=== PATIENT | male | born 1970 | race Native Hawaiian/Other Pacific Islander ===

== ENCOUNTER 2016-08-01 22:31 | Emergency (ER) | payer OTHER ==
[~2016-08-01] VITALS: Ht 190.5 cm; Wt 99.8 kg
[~2016-08-01 22:31] MED LIST: ACET7.5T70 PO; ALBUAER5 INH; ALBUTEROL0.083 % IN; ALPR0.5T24 PO; AMLO2.5T PO; CETIRIZINE10 MG PO; HYDR-3182 PO; LOPRESSOR100 MG PO; LORA1TAB17 PO; NEXIUM40 M1 PO; POLY3350 PO; PRAMIPEXOLE0.25 MG PO; RAMI10CA PO; SIMV20TA2 PO; TRICOR145 MG PO; XANAX XR0.5 MG PO
[2016-08-01 23:16] LABS: PLATELET COUNT 238 K/uL (142-355)
[2016-08-01 23:25] LABS: POTASSIUM 3.8 mmol/L (3.6-5.2); SODIUM 135 mmol/L (136-145)
[2016-08-02 00:42] VITALS: BP 176/95; TEMP 97.7
== END 2016-08-02 00:47 | disposition home or self-care (01) ==
LOC: ED 22:31
PROVIDERS: Family Medicine
DX: R10.84 Generalized abdominal pain (principal); K85.80 Other acute pancreatitis without necrosis or infection; K21.9 Gastro-esophageal reflux disease without esophagitis; E86.0 Dehydration; K29.00 Acute gastritis without bleeding
CPT/HCPCS: 80053; 81000; 82150; 83690; 85027; 96361; 96374; 99284; J2550

== ENCOUNTER 2016-08-09 22:49 | Emergency (ER) | payer OTHER ==
[~2016-08-09] VITALS: Ht 190.5 cm; Wt 99.8 kg
[2016-08-10 00:01] VITALS: BP 128/76; TEMP 98.4
== END 2016-08-10 00:04 | disposition home or self-care (01) ==
LOC: ED 22:49
DX: J44.1 Chronic obstructive pulmonary disease with (acute) exacerbation (principal); J98.01 Acute bronchospasm
CPT/HCPCS: 96372; 99283; J2930

== ENCOUNTER 2016-09-28 12:11 | Observation (INO) | payer OTHER ==
[~2016-09-28] VITALS: Ht 190.5 cm; Wt 101.4 kg
[2016-09-28 16:46] LABS: PLATELET COUNT 178 K/uL (142-355)
[2016-09-28 17:44] LABS: POTASSIUM 3.8 mmol/L (3.6-5.2); SODIUM 137 mmol/L (136-145)
[2016-09-28 18:19] VITALS: BP 118/76; TEMP 97.8; Ht 190.5 cm; Wt 101.4 kg
[2016-09-28] MEDS ORDERED: CLONAZEP ODT2 MG PO (19:25)
[2016-09-28] MEDS ORDERED: ESCI10TA PO (19:26)
[2016-09-28 20:00] VITALS: BP 147/83; TEMP 98.3
[2016-09-29] VITALS: BP 129/71; TEMP 98.1
[2016-09-29 04:00] VITALS: BP 112/62; BP 141/87; TEMP 98; TEMP 98.3
[2016-09-29 08:00] VITALS: BP 157/85; TEMP 98.1
[2016-09-29 11:49] LABS: POTASSIUM 3.7 mmol/L (3.6-5.2); SODIUM 137 mmol/L (136-145)
[2016-09-29 11:58] LABS: PLATELET COUNT 162 K/uL (142-355)
[2016-09-29 12:00] VITALS: BP 141/82; TEMP 97.9
[2016-09-29 16:00] VITALS: BP 150/76; TEMP 98.3
[2016-09-29 20:00] VITALS: BP 145/70; TEMP 97.9
[2016-09-30 00:13] VITALS: BP 136/70; TEMP 97.9
[2016-09-30 04:00] VITALS: BP 147/76; TEMP 97.6
[2016-09-30 04:44] LABS: PLATELET COUNT 181 K/uL (142-355)
[2016-09-30 04:59] LABS: SODIUM 137 mmol/L (136-145)
[2016-09-30 07:56] VITALS: BP 146/78; TEMP 97.6
[2016-09-30 12:00] VITALS: BP 155/76; TEMP 98.3
[2016-09-30 16:00] VITALS: BP 150/76; TEMP 98.3
== END 2016-09-30 20:40 | disposition home or self-care (01) ==
LOC: MED/SURG 12:11
PROVIDERS: ADMIT Family Medicine
DX: J18.8 Other pneumonia, unspecified organism (principal); R73.9 Hyperglycemia, unspecified
CPT/HCPCS: 36415; 80053; 83036; 83735; 84100; 85027; 87040; 87070; 87205; 93005; 94640; 94664; 94760; 96365; 96366; 96367; 96374; 96375; 99220; G0378; G0379; J2930; J3475; J3480

== ENCOUNTER 2016-10-20 15:20 | Outpatient (CLI) | payer OTHER ==
[~2016-10-20 15:20] MED LIST changes: +CLONAZEP ODT2 MG PO; +ESCI10TA PO
== END 2016-10-20 17:00 | disposition home or self-care (01) ==
LOC: CT 15:20
DX: R04.2 Hemoptysis (principal)
CPT/HCPCS: Q9963

== ENCOUNTER 2017-07-01 11:25 | Outpatient (CLI) | payer OTHER | END 2017-07-01 19:21 | disposition home or self-care (01) | LOC: RAD 11:25 | DX: J20.8 Acute bronchitis due to other specified organisms (principal) ==

== ENCOUNTER 2017-07-30 16:02 | Outpatient (CLI) | payer OTHER ==
[2017-07-30 16:36] LABS: POTASSIUM 4.1 mmol/L (3.6-5.2)
== END 2017-07-30 19:41 | disposition home or self-care (01) ==
LOC: LAB 16:02
PROVIDERS: Family Medicine
DX: E86.0 Dehydration (principal)
CPT/HCPCS: 80053

== ENCOUNTER 2018-01-20 15:07 | Outpatient (CLI) | payer OTHER | END 2018-01-20 15:10 | disposition short-term general hospital (02) | LOC: AMB 15:07 | DX: E86.0 Dehydration (principal); F10.10 Alcohol abuse, uncomplicated | CPT/HCPCS: A0425; A0427 ==

== ENCOUNTER 2018-01-20 15:19 | Observation (INO) | payer OTHER ==
[~2018-01-20] VITALS: Ht 190.5 cm; Wt 93.5 kg
[2018-01-20 16:11] LABS: PLATELET COUNT 267 K/uL (142-355)
[2018-01-20 16:25] LABS: PARTIAL THROMBOPLASTIN TIME 25.6 SECONDS (24.5-33.6)
[2018-01-20 16:28] LABS: POTASSIUM 3.7 mmol/L (3.6-5.2); SODIUM 135 mmol/L (136-145)
[2018-01-20 17:08] VITALS: BP 154/84; TEMP 98.9; Ht 190.5 cm; Wt 93.5 kg
[2018-01-20 20:00] VITALS: BP 155/74; TEMP 98.5
[2018-01-21] VITALS: BP 155/76; TEMP 99.1
[2018-01-21 04:00] VITALS: BP 151/73; TEMP 98.4
[2018-01-21 08:00] VITALS: BP 162/72; TEMP 98.5
[2018-01-21 08:59] LABS: PLATELET COUNT 212 K/uL (142-355)
[2018-01-21 09:35] LABS: POTASSIUM 3.4 mmol/L (3.6-5.2)
[2018-01-21 12:00] VITALS: BP 126/72; TEMP 98.8
--- NOTE | 2018-01-21 13:17 | NUR ---
IV D/C'D PER DOCTORS ORDERS. DISCHARGE INSTRUCTIONS AND FOLLOW UP APPT MADE. PT AND PTS FAMILY UNDERSTANDS DISCHARGE INSTRUCTIONS. PT LEFT VIA WC. FAMILY AT SIDE. NAD NOTED.
== END 2018-01-21 13:20 | disposition home or self-care (01) ==
LOC: MED/SURG 15:19
PROVIDERS: ADMIT Family Medicine
DX: R41.82 Altered mental status, unspecified (principal); R11.2 Nausea with vomiting, unspecified; R19.7 Diarrhea, unspecified; J44.9 Chronic obstructive pulmonary disease, unspecified
CPT/HCPCS: 36415; 80053; 80307; 81000; 82272; 82550; 83605; 83735; 83880; 84100; 84484; 85027; 85610; 85730; 87015; 87040; 87045; 87324; 87328; 87329; 87449; 87899; 93005; 94640; 94664; 94760; 96365; 96366; 96374; 99220; G0378; G0379; J2405

== ENCOUNTER 2018-02-28 12:55 | Outpatient (CLI) | payer OTHER | END 2018-02-28 19:49 | disposition home or self-care (01) | LOC: RAD 12:55 | DX: M25.562 Pain in left knee (principal) ==

== ENCOUNTER 2021-09-29 12:34 | Outpatient (CLI) | payer OTHER ==
[2021-09-29 13:46] LABS: PLATELET COUNT 202 K/uL (142-355)
[2021-09-29 14:02] LABS: POTASSIUM 4.5 mmol/L (3.6-5.2)
== END 2021-09-29 19:55 | disposition home or self-care (01) ==
LOC: RAD 12:34
PROVIDERS: ATTEND Nurse Practitioner Family
DX: J44.1 Chronic obstructive pulmonary disease with (acute) exacerbation (principal)
CPT/HCPCS: 36415; 80053; 85027